=== PATIENT | female | born 1950 | race Two or more races ===

== ENCOUNTER 2021-09-26 06:26 | Inpatient (IN) | payer OTHER, MEDICAID ==
[~2021-09-26] VITALS: Ht 167.6 cm; Wt 97.9 kg
[2021-09-26] VITALS (8 sets, daily range): BP systolic 123–161; BP diastolic 63–80
[~2021-09-26 06:26] MED LIST: ASPI1TAB20 PO; AZEL0.1S; CHOL200021 PO; DOCU100T15 PO; ESTR0.1C VA; FINA5TAB4 PO; FLUO-259 PO; FLUT250M2 IN; GLIP10TA16 PO; GLIP5TAB12 PO; LISI-283 PO; METF-372 PO; MONT-8 PO; OXYB10TA14 PO; PANT40TA2 PO; PROBTAB12 OR; SIMV-8 PO; SOTA80TA PO; TRAZ100T3 PO
[2021-09-26] MEDS ORDERED: ceFAZolin 1GM/50ML 100 ML IV ONE ×3 (06:50→23:07)
[2021-09-26] MEDS ORDERED: CELECOXIB 100 MG CAP ONE (06:58)
[2021-09-26] MEDS ORDERED: ACETAMINOPHEN IV 100 ML IV ONE (06:59)
[2021-09-26] MEDS ORDERED: ACETAMINOPHEN IV 1000 MG/100ML (10MG/ML) IV ONE (07:00)
[2021-09-26] MEDS ORDERED: PREGABALIN CAPSULE 75 MG CAP PO ONE (07:00)
[2021-09-26] MEDS ORDERED: CELECOXIB 100 MG CAP PO ONE (07:00)
[2021-09-26] MEDS ORDERED: TRANEXAMIC ACID 20 ML ONE (07:13)
[2021-09-26] MEDS ORDERED: EPINEPHrine HCL 1 MG/1 ML AMP ONE (07:17)
[2021-09-26] MEDS: KETOROLAC TROMETH 30 MG/ML 1ML VIAL ONE ×2 (07:17→08:30)
[2021-09-26] MEDS: VANCOMYCIN HCL 1000 MG VL ONE ×2 (07:17→08:30)
[2021-09-26] MEDS ORDERED: PREGABALIN CAPSULE 75 MG CAP ONE (07:23)
[2021-09-26] MEDS ORDERED: TETRACAINE 1% INJ 2 ML VIAL IJ ONE (07:37)
[2021-09-26] MEDS ORDERED: MIDAZOLAM HCL 2MG/2ML 2ml VIAL (1mg/ml) ONE (07:41)
[2021-09-26] MEDS ORDERED: fentaNYL CITRATE 100 MCG/2 ML VL ONE (07:41)
[2021-09-26] MEDS ORDERED: MORPHINE SULF PF 2 MG/2 ML SYRG ONE (07:41)
[2021-09-26] MEDS: BUPIVACAINE 0.25% INJ 50ML VIAL ONE ×2 (08:14→08:30)
[2021-09-26] MEDS ORDERED: ONDANSETRON HCL 4 MG/2 ML VIAL ONE (10:18)
[2021-09-26] MEDS ORDERED: LIDOCAINE 2% (LOCAL ANESTH.) PF 5ml SDV ONE (10:18)
[2021-09-26] MEDS ORDERED: PROPOFOL 10 MG/ML 20 ML IV ONE (10:18)
[2021-09-26] MEDS ORDERED: HYDROmorphone HCL 2 MG/ML VL IV PRN (10:30)
[2021-09-26] MEDS ORDERED: NALBUPHINE HCL 10 MG/1ml INJECTION SUBCUT ONE (10:30)
[2021-09-26] MEDS ORDERED: OXYCODONE W/ ACETAMINOPHEN 5/325MG TABLET PO PRN (10:30)
[2021-09-26] MEDS ORDERED: NALOXONE HCL 0.4 MG/ML VIAL IV PRN (10:30)
[2021-09-26] MEDS ORDERED: MORPHINE SULFATE INJECTION 2 MG/ML SYRG IV PRN (10:30)
[2021-09-26] MEDS ORDERED: KETOROLAC TROMETH 30 MG/ML 1ML VIAL IV PRN (10:30)
[2021-09-26] MEDS ORDERED: NITROGLYCERIN 0.4 MG SL TAB SL PRN (10:30)
[2021-09-26] MEDS ORDERED: diphenhdrAMINE HCL 50 MG/1 ML VL IV PRN (10:30)
[2021-09-26] MEDS ORDERED: ONDANSETRON HCL 4 MG/2 ML VIAL IV PRN (10:30)
[2021-09-26] MEDS ORDERED: DexAMETHasone SOD PHOS 10MG/1ML VIAL INJ IV PRN (10:30)
[2021-09-26] MEDS: LACTATED RINGER'S 1,000 ML IV SCH ×2 (10:35→20:30)
[2021-09-26] MEDS: ACCU-CHEK COMFORT CURVE STRIP VI SCH ×3 (11:38→21:59)
[2021-09-26] MEDS: SODIUM CHLOR 0.9% PF (SALINE LOCK) 10ML VIAL/SYR IV SCH ×2 (14:02→21:47)
[2021-09-26] MEDS: ceFAZolin 2 GM in D5W 5% 100 ML IV SCH ×2 (14:02→23:16)
[2021-09-26] MEDS: metFORMIN HYDROCHLORIDE 500 MG TAB PO SCH (17:37)
[2021-09-26] MEDS: glipiZIDE 5 MG TAB PO SCH (17:38)
[2021-09-26] MEDS: HYDROmorphone HCL 2 MG/ML VL IV PRN (17:45)
[2021-09-26] MEDS: ONDANSETRON HCL 4 MG/2 ML VIAL IV PRN (19:03)
[2021-09-26] MEDS: FLUTICASONE SALMETEROL IN SCH (21:46)
[2021-09-26] MEDS: DOCUSATE SOD 100 MG CAP PO SCH (21:47)
[2021-09-27] VITALS (14 sets, daily range): BP systolic 144–183; BP diastolic 73–95
[2021-09-27] MEDS: ONDANSETRON HCL 4 MG/2 ML VIAL IV PRN (04:10)
[2021-09-27] MEDS: hydrALAZINE HCL 20 MG/ML VL IV PRN (05:10)
[2021-09-27] MEDS: ceFAZolin 2 GM in D5W 5% 100 ML IV SCH (06:00)
[2021-09-27] MEDS: SODIUM CHLOR 0.9% PF (SALINE LOCK) 10ML VIAL/SYR IV SCH ×3 (06:01→22:00)
[2021-09-27] MEDS: LACTATED RINGER'S 1,000 ML IV SCH ×3 (06:01→19:12)
[2021-09-27] MEDS: ACCU-CHEK COMFORT CURVE STRIP VI SCH ×4 (06:16→22:00)
[2021-09-27 06:30] LABS: Albumin 3.4 g/dL (3.4-5.0); Calcium 8.6 mg/dL (8.5-10.1); Potassium 4.1 mmol/L (3.5-5.1)
[2021-09-27 06:33] LABS: BUN/Creatinine Ratio 18.6; Bilirubin, Total 0.4 mg/dL (0.2-1.0); Total Protein 6.8 g/dL (6.4-8.2)
[2021-09-27 06:49] LABS: Hemoglobin 9.6 g/dL (12.2-16.2)
[2021-09-27] MEDS: glipiZIDE 5 MG TAB PO SCH ×2 (07:00→17:35)
[2021-09-27] MEDS: metFORMIN HYDROCHLORIDE 500 MG TAB PO SCH ×2 (08:00→17:35)
[2021-09-27] MEDS: FLUoxetine HCL 20 MG CAP PO SCH (10:00)
[2021-09-27] MEDS: MONTELUKAST SODIUM 10 MG TAB PO SCH (10:00)
[2021-09-27] MEDS: SOTALOL HCL 80 MG TAB PO SCH ×2 (10:00→22:00)
[2021-09-27] MEDS: PANTOPRAZOLE 40 MG TAB PO SCH (10:00)
[2021-09-27] MEDS: DOCUSATE SOD 100 MG CAP PO SCH ×2 (10:00→22:54)
[2021-09-27] MEDS: FLUTICASONE SALMETEROL IN SCH ×2 (10:00→22:00)
[2021-09-27] MEDS: LISINOPRIL 10 MG TAB PO SCH (10:00)
[2021-09-27] MEDS: ENOXAPARIN SOD 40 MG/0.4 ML SYRINGE SC SCH (10:23)
[2021-09-27] MEDS: METOCLOPRAMIDE HCL 5MG/ml INJ 2ml VIAL IV PRN ×2 (12:25→12:29)
[2021-09-27] MEDS: HYDROmorphone HCL 2 MG/ML VL IV PRN (14:14)
[2021-09-27] MEDS ORDERED: DEXTROSE (50%) 50ML SYRG IV PRN (17:30)
[2021-09-27] MEDS ORDERED: PROMETHAZINE HCL 25 MG/ML 1ML IV PRN (18:30)
[2021-09-27] MEDS: InsuLIN REG 1unit/0.01ml Soln (100units/ml) SC SCH (22:55)
[2021-09-28] MEDS: traMADol HCL 50 MG TAB PO PRN ×3 (04:23→20:57)
[2021-09-28 05:00] VITALS: BP 157/87
[2021-09-28] MEDS: SODIUM CHLOR 0.9% PF (SALINE LOCK) 10ML VIAL/SYR IV SCH ×3 (06:18→21:02)
[2021-09-28] MEDS: glipiZIDE 5 MG TAB PO SCH (06:19)
[2021-09-28] MEDS: InsuLIN REG 1unit/0.01ml Soln (100units/ml) SC SCH ×4 (06:20→21:03)
[2021-09-28] MEDS: ACCU-CHEK COMFORT CURVE STRIP VI SCH ×4 (06:36→21:03)
[2021-09-28 07:25] LABS: Hematocrit 29.7 % (36.0-46.0); Hemoglobin 9.4 g/dL (12.2-16.2)
[2021-09-28 08:53] VITALS: BP 176/90
[2021-09-28 09:17] LABS: Basophils # (auto) 0.1 10 ^3/uL (0-0.2); Eosinophils # (auto) 0 10 ^3/uL (0-0.8); Hemoglobin 9.3 g/dL (12.2-16.2); Monocytes # (auto) 1.9 10 ^3/uL (0-1.3); Monocytes % (auto) 9.9 % (0.0-12.0)
[2021-09-28 09:18] LABS: Basophils % (auto) 0.7 % (0.0-2.0); Eosinophils % (auto) 0.2 % (0.0-7.0); Hematocrit 30.1 % (36.0-46.0); Lymphocytes # (auto) 1.7 10 ^3/uL (0.4-5.4); Lymphocytes % (auto) 8.7 % (10.0-50.0); Mean Corpuscular Hemoglobin 19.2 pg (28.0-32.0); Neutrophils # (auto) 15.4 10 ^3/uL (1.6-8.6); Neutrophils % (auto) 80.5 % (37.0-80.0); Nucleated Red Blood Cells % 0.1 %; Red Blood Cells 4.85 10^6/uL (4.0-5.20); Red Cell Distribution Width 16.9 % (11.8-14.3); White Blood Cell 19.1 10^3/uL (4.4-10.8)
[2021-09-28 09:32] LABS: Albumin 3.1 g/dL (3.4-5.0); Calcium 9.2 mg/dL (8.5-10.1); Potassium 3.4 mmol/L (3.5-5.1)
[2021-09-28 09:38] LABS: BUN/Creatinine Ratio 21.1; Bilirubin, Total 0.6 mg/dL (0.2-1.0); Total Protein 6.5 g/dL (6.4-8.2)
[2021-09-28] MEDS: FLUTICASONE SALMETEROL IN SCH ×2 (09:45→21:16)
[2021-09-28] MEDS: ENOXAPARIN SOD 40 MG/0.4 ML SYRINGE SC SCH (09:46)
[2021-09-28] MEDS: DOCUSATE SOD 100 MG CAP PO SCH ×2 (09:46→21:02)
[2021-09-28] MEDS: FLUoxetine HCL 20 MG CAP PO SCH (09:46)
[2021-09-28] MEDS: MONTELUKAST SODIUM 10 MG TAB PO SCH (09:46)
[2021-09-28] MEDS: LISINOPRIL 10 MG TAB PO SCH (09:46)
[2021-09-28] MEDS: SOTALOL HCL 80 MG TAB PO SCH ×2 (09:46→21:02)
[2021-09-28] MEDS: PANTOPRAZOLE 40 MG TAB PO SCH (09:46)
[2021-09-28] MEDS: hydrALAZINE HCL 20 MG/ML VL IV PRN (11:54)
[2021-09-28 12:38] VITALS: BP 170/85
[2021-09-28] MEDS: LACTATED RINGER'S 1,000 ML IV SCH (14:30)
[2021-09-28] MEDS ORDERED: POTASSIUM CHL 20 Meq TABLET PO ONE (16:30)
[2021-09-28] MEDS ORDERED: LISINOPRIL 20 MG TAB PO ONE (16:30)
[2021-09-28] MEDS ORDERED: ALBUTEROL SULF 2.5 MG/0.5ML(0.5%) NEB SOLN NEB SCH (16:30)
[2021-09-28 16:38] VITALS: BP 173/85
[2021-09-28] MEDS: FUROSEMIDE 20 MG/2 ML VIAL IV SCH (16:40)
[2021-09-28 22:00] VITALS: BP 126/80
[2021-09-29 05:00] VITALS: BP 160/79
[2021-09-29] MEDS: SODIUM CHLOR 0.9% PF (SALINE LOCK) 10ML VIAL/SYR IV SCH ×2 (06:00→14:17)
[2021-09-29] MEDS: hydrALAZINE HCL 20 MG/ML VL IV PRN (06:01)
[2021-09-29] MEDS: InsuLIN REG 1unit/0.01ml Soln (100units/ml) SC SCH ×3 (06:06→17:00)
[2021-09-29] MEDS: ACCU-CHEK COMFORT CURVE STRIP VI SCH ×3 (06:06→17:00)
[2021-09-29] MEDS: glipiZIDE 5 MG TAB PO SCH (06:16)
[2021-09-29 06:54] LABS: Hemoglobin 9.4 g/dL (12.2-16.2)
[2021-09-29 06:56] LABS: Hematocrit 29.7 % (36.0-46.0)
[2021-09-29 09:00] VITALS: BP 156/81
[2021-09-29] MEDS: ONDANSETRON HCL 4 MG/2 ML VIAL IV PRN (10:00)
[2021-09-29] MEDS ORDERED: LISINOPRIL 20 MG TAB PO SCH (10:00)
[2021-09-29] MEDS: traMADol HCL 50 MG TAB PO PRN (10:00)
[2021-09-29] MEDS: FLUTICASONE SALMETEROL IN SCH (10:00)
[2021-09-29] MEDS: FLUoxetine HCL 20 MG CAP PO SCH (10:17)
[2021-09-29] MEDS: PANTOPRAZOLE 40 MG TAB PO SCH (10:17)
[2021-09-29] MEDS: DOCUSATE SOD 100 MG CAP PO SCH (10:17)
[2021-09-29] MEDS: MONTELUKAST SODIUM 10 MG TAB PO SCH (10:17)
[2021-09-29] MEDS: SOTALOL HCL 80 MG TAB PO SCH (10:17)
[2021-09-29] MEDS: FUROSEMIDE 20 MG/2 ML VIAL IV SCH (10:18)
[2021-09-29] MEDS: ENOXAPARIN SOD 40 MG/0.4 ML SYRINGE SC SCH (10:18)
[2021-09-29 12:10] VITALS: BP 145/77
[2021-09-29 16:44] VITALS: BP 154/90
[2021-09-30] MEDS ORDERED: FINASTERIDE 1 MG PO SCH (10:00)
[2021-10-03] MEDS ORDERED: FINASTERIDE 1 MG PO SCH (10:00)
== END 2021-09-29 20:50 | disposition home health service (06) | DRG 469 ==
LOC: SUR 06:26 → OVERFLOW 10:28 → WEST WING 16:47 → TELE-WESTW 19:05
PROVIDERS: ADMIT Orthopaedic Surgery Adult Reconstructive Orthopaedic Surgery; ATTEND Orthopaedic Surgery
PROC: 0SRD0J9 Replacement of Left Knee Joint with Synthetic Substitute, Cemented, Open Approach (ICD-10-PCS; principal; 2021-09-26 07:43)
DX: M17.12 Unilateral primary osteoarthritis, left knee (principal); J96.01 Acute respiratory failure with hypoxia; E11.9 Type 2 diabetes mellitus without complications; I11.0 Hypertensive heart disease with heart failure; I50.9 Heart failure, unspecified; J45.909 Unspecified asthma, uncomplicated; Z82.49 Family history of ischemic heart disease and other diseases of the circulatory system; Z80.9 Family history of malignant neoplasm, unspecified
CPT/HCPCS: 36415; 71045; 73560; 74022; 80053; 82962; 83690; 83880; 85014; 85018; 85025; 86850; 86900; 86901; 93306; 94640; 97110; 97116; 97163; 97530; G0378; J0131; J0171; J0690; J1815; J1885; J2001; J2250; J2405; J2704; J3490; J7060